=== PATIENT | female | born 1995 | race Caucasian/White ===

== ENCOUNTER 2021-12-08 16:31 | Inpatient (IN) | payer MEDICAID, OTHER ==
[~2021-12-08] VITALS: Ht 149.9 cm; Wt 55.4 kg
[2021-12-08] VITALS (21 sets, daily range): BP systolic 115–170; BP diastolic 65–94
[2021-12-08] MEDS ORDERED: LACTATED RINGERS 1,000 ML IV SCH (16:45)
[2021-12-08] MEDS ORDERED: LIDOCAINE/EPI 2% 1:200,00 (XYLOCAINE) 10 ML VIAL ONE ×2 (16:55→16:56)
[2021-12-08 16:56] LABS: BASOPHILS # (AUTO) 0.1 10^3/uL (0.0-0.1); BASOPHILS % (AUTO) 0 % (0-10); EOSINOPHILS # (AUTO) 0.1 10^3/uL (0.0-0.3); EOSINOPHILS % (AUTO) 1 % (0-10); HEMATOCRIT 36 % (35-52); HEMOGLOBIN 11.3 g/dL (11.5-16.0); LYMPHOCYTES # (AUTO) 2.7 10^3/uL (1.0-4.0); LYMPHOCYTES % (AUTO) 15 % (12-44); MEAN CORPUSCULAR HEMOGLOBIN 24 pg (25-34); MEAN CORPUSCULAR HGB CONC 31 g/dL (32-36); MEAN CORPUSCULAR VOLUME 77 fL (80-99); MEAN PLATELET VOLUME 8.8 fL (9.0-12.2); MONOCYTES # (AUTO) 1.8 10^3/uL (0.0-1.0); MONOCYTES % (AUTO) 10 % (0-12); NEUTROPHILS # (AUTO) 12.7 10^3/uL (1.8-7.8); NEUTROPHILS % (AUTO) 71 % (42-75); PLATELET COUNT 384 10^3/uL (130-400); WHITE BLOOD COUNT 17.8 10^3/uL (4.3-11.0)
--- NOTE | 2021-12-08 17:29 | History & Physical ---
History and Physical Date Seen by Provider: Dec 08, 2021 Time Seen by Provider: 16:20 This patient is a 26-year-old 3 para 2 female with no local physician. She had planned to deliver In [employer] However she began contractingAt home and this hospital is 45 minutes closer than [place]. She has a history of labor and deliveries she currently is at about 35 weeks gestation. She also has a history of very rapid deliveries. She had been in the hospital the past week for 3 days due to labor and had been dilated to 2 cm progressed to 6 or 7 cm was given magnesium to arrest labor and was given steroids on Thursday and Thursday of last week. By Thursday she was thought to be only 2 cm again so she was discharged home. Patient was 6 to 7 cm dilated on arrival reina every 2 minutes feeling a strong urge to push had a bulging bag and a vertex presentation. It was apparent that delivery was eminent. Patient does report no problems with this and a negative GBS culture during this Allergies are none Medications are vitamins Medical history is are negative Social history is patient and accompanied on this visit by her husbandShe denies tobacco alcohol and drug use Family history is noncontributory HEENT exam is normal Neck is supple no lymphadenopathy no thyromegaly Abdomen is gravid soft nontender nondistended Extremities show no clubbing or cyanosis. There is no Homans' sign. Initial exam as noted above repeat exam about 15 minutes later showed a cervix now 9 to 10 cm dilated, +1 to +2 station vertex presentation with a bulging bag. Amniotomy was performed with release of particulate meconium stained amniotic fluid. Patient pushed with several contractions and delivered see the delivery note. monitor showed a normal category 1 heart rate pattern with contractions every 2 minutes until the patient was pushing and then there were deep variable D cells. Assessment and plan 35-week with history of labor and delivery with 2 previous pregnancies. And advanced labor with delivery eminent on arrival 35 weeks gestation with labor Allergies and Home Medications Allergies Coded Allergies: No Known Drug Allergies (Unverified , 12/08/21) Patient Home Medication List Home Medication List Reviewed: Yes JAIMEE DEWEY MD Dec 08, 2021 17:29
--- NOTE | 2021-12-08 17:34 | OB Labor & Delivery Record ---
Labor & Delivery This patient delivered by spontaneous vaginal livery a viable male with Apgars of 8 and 9 at 1 and 5 minutes respectively weight of 5 pounds 15 ouncesAnd a cord blood pH that is pending. time was 1703. There was thick particulate amniotic fluid on amniotomy. RT was on hand and filler feeder was in route The was bulb suctioned on delivery the head and again on completion of delivery. The umbilical cord went pulses was doubly clamped the father cut the cord the baby was passed to mom's abdomen transiently. Baby was then taken to the the bedside warmer for resuscitation and tension. Placenta delivered spontaneously [place]. There has been port wine amniotic fluid concerning for some degree of placental abruption. There appeared to be a small adherent clot less than 5% of the edge of the placenta.Note was made of p artial uterine inversion promptly after placenta was delivered.Uterine fundus was replaced manuallyAnd then Pitocin was initiated to help with contraction of the uterus. Attention was paid particular to the uterus for recurrence of the inversion which did not occur The cervix vagina rectum perineum were examined and found intact except for some very superficial abrasions. Pudendal have been placed just after amniotomy and just prior to delivery due to patient's request for analgesia and no time for an epidural or spinal.Patient reported adequate relief with the pudendal. Sponge needle counts were correct on completion of the Delivery. Blood loss was estimated around 150 to 200 cc. The patient remained in the LDR for baby A was at the bedside warmer awaiting the arrival of the filler feeder. The baby was stable and oxygenating well. JAIMEE DEWEY MD Dec 08, 2021 17:34
[2021-12-08] MEDS ORDERED: IBUP-1780 PO (17:41)
[2021-12-08] MEDS ORDERED: DOCU-143 PO (17:41)
--- NOTE | 2021-12-08 17:42 | Discharge Inst-Surgical ---
Discharge Inst-Surgical Consults/Follow Up Orders & Referrals Follow Up Appt: Call to make follow up appt. for patient in 4 weeks. Activity Per routine post vaginal delivery instructions. Please call in RX to patient pharmacy. Diet as tolerated Patient may shower or tub bathe as desired. JAIMEE DEWEY MD Dec 08, 2021 17:42
--- NOTE | 2021-12-08 17:42 | Discharge Inst-Surgical ---
Discharge Inst-Surgical Depart Medication/Instructions New, Converted or Re-Newed RX: Call to Patients Pharmacy Consults/Follow Up Patient Instructions: As directed Activity Activity as Tolerated: No Diet Discharge Diet: No Restrictions JAIMEE DEWEY MD Dec 08, 2021 17:42
[2021-12-08] MEDS ORDERED: OXYTOCIN PRE-MIX DRIP 500 ML IV SCH (17:45)
[2021-12-08] MEDS ORDERED: BENZOCAINE/MENTHOL (DERMOPLAST) 56 ML CAN TP PRN (17:45)
[2021-12-08] MEDS ORDERED: TETANUS,DIPTH,PERTUSS P/F (BOOSTRIX) 0.5 ML VIAL IM ONE (17:45)
[2021-12-08 17:57] LABS: LYMPHOCYTES % (MANUAL) 16 %; MICROCYTOSIS SLIGHT; MONOCYTES % (MANUAL) 7 %; NEUTROPHILS % (MANUAL) 77 %; POLYCHROMASIA SLIGHT; RBC MORPH NORMAL
[2021-12-08] MEDS ORDERED: BENZOCAINE/MENTHOL (DERMOPLAST) 56 ML CAN TP ONE (19:40)
[2021-12-08] MEDS ORDERED: KETOROLAC 30 MG/ML VIAL ONE (20:11)
[2021-12-08] MEDS: KETOROLAC 30 MG/ML VIAL IV SCH (20:14)
[2021-12-08] MEDS: ACETAMINOPHEN 500 MG TAB (TYLENOL) PO SCH (20:41)
[2021-12-09 01:11] VITALS: BP 128/80
[2021-12-09] MEDS: KETOROLAC 30 MG/ML VIAL IV SCH ×3 (02:45→15:40)
[2021-12-09] MEDS: ACETAMINOPHEN 500 MG TAB (TYLENOL) PO SCH ×4 (02:45→21:30)
[2021-12-09 05:15] VITALS: BP 124/85
--- NOTE | 2021-12-09 07:50 | Progress Note ---
Standard Progress Note Progress Notes/Assess & Plan Date Seen by a Provider: Dec 09, 2021 Time Seen by a Provider: 07:49 Progress/Assessment & Plan This patient is without complaint. She is ambulating, voiding, tolerating oral intake well and has good pain control. Vital Signs Date Time Temp Pulse Resp B/P (MAP) Pulse Ox O2 Delivery O2 Flow Rate FiO2 12/09/21 05:15 36.6 70 16 124/85 (98) 97 Room Air 12/09/21 01:11 36.5 73 18 128/80 (96) 98 Room Air 12/08/21 21:00 36.8 82 130/86 (101) Room Air 12/08/21 20:45 96 134/85 (101) Room Air 12/08/21 20:30 97 120/79 (93) Room Air 12/08/21 20:15 89 141/90 (107) Room Air 12/08/21 20:00 98 130/91 (104) Room Air 12/08/21 19:45 95 121/84 (96) Room Air 12/08/21 19:30 36.7 100 132/88 (103) Room Air 12/08/21 19:15 100 137/92 (107) Room Air 12/08/21 19:00 100 135/89 (104) Room Air 12/08/21 18:45 90 132/85 (101) Room Air 12/08/21 18:30 36.3 95 20 126/80 (95) Room Air 12/08/21 18:15 36.2 94 20 128/83 (98) Room Air 12/08/21 18:00 36.3 90 20 126/79 (95) Room Air 12/08/21 17:44 36.4 98 20 123/71 (88) Room Air 12/08/21 17:39 36.3 125 20 152/85 (107) Room Air 12/08/21 17:34 36.5 102 20 135/65 (88) Room Air 12/08/21 17:26 36.3 100 20 115/80 (92) Room Air 12/08/21 17:10 36.1 110 20 170/89 (116) Room Air 12/08/21 17:06 36.0 93 20 151/70 (97) 98 Room Air 12/08/21 17:00 35.9 93 22 137/94 (108) 98 Room Air 12/08/21 16:50 36.4 99 20 99 Room Air I & O 12/09/21 07:00 Intake Total 575 ml Balance 575 ml Vital signs are stable. Patient is afebrile. Fundus is firm below the umbilicus and nontender. Extremities show no clubbing or cyanosis. There is no Homans' sign. Pelvic exam is deferred Assessment and plan day #1 status post spontaneous vaginal delivery at 35+ weeks gestation. Patient is doing well will have routine convalescent care JAIMEE DEWEY MD Dec 09, 2021 07:50
[2021-12-09] MEDS ORDERED: WITCH HAZEL(TUCKS) 40 EA JAR TOP PRN (08:00)
[2021-12-09] MEDS: DOCUSATE SODIUM 100 MG (COLACE) CAP PO SCH ×2 (08:15→21:30)
[2021-12-09 08:25] VITALS: BP 119/84
[2021-12-09 12:30] VITALS: BP 129/86
[2021-12-09 15:40] VITALS: BP 135/83
[2021-12-09] MEDS: IBUPROFEN 800 MG (MOTRIN) TAB PO SCH ×2 (15:40→21:30)
[2021-12-09] MEDS ORDERED: IBUPROFEN 800 MG (MOTRIN) TAB PO SCH (18:00)
[2021-12-09 21:30] VITALS: BP 125/72
[2021-12-10 04:30] VITALS: BP 118/73
[2021-12-10] MEDS: IBUPROFEN 800 MG (MOTRIN) TAB PO SCH ×3 (04:30→15:00)
[2021-12-10] MEDS: ACETAMINOPHEN 500 MG TAB (TYLENOL) PO SCH ×3 (04:30→15:00)
--- NOTE | 2021-12-10 07:32 | Progress Note ---
Standard Progress Note Progress Notes/Assess & Plan Date Seen by a Provider: Dec 10, 2021 Time Seen by a Provider: 07:31 Progress/Assessment & Plan This patient is without complaint. She is ambulating, voiding, tolerating oral intake well and has good pain control. Vital Signs Date Time Temp Pulse Resp B/P (MAP) Pulse Ox O2 Delivery O2 Flow Rate FiO2 12/09/21 05:15 36.6 70 16 124/85 (98) 97 Room Air 12/09/21 01:11 36.5 73 18 128/80 (96) 98 Room Air 12/08/21 21:00 36.8 82 130/86 (101) Room Air 12/08/21 20:45 96 134/85 (101) Room Air 12/08/21 20:30 97 120/79 (93) Room Air 12/08/21 20:15 89 141/90 (107) Room Air 12/08/21 20:00 98 130/91 (104) Room Air 12/08/21 19:45 95 121/84 (96) Room Air 12/08/21 19:30 36.7 100 132/88 (103) Room Air 12/08/21 19:15 100 137/92 (107) Room Air 12/08/21 19:00 100 135/89 (104) Room Air 12/08/21 18:45 90 132/85 (101) Room Air 12/08/21 18:30 36.3 95 20 126/80 (95) Room Air 12/08/21 18:15 36.2 94 20 128/83 (98) Room Air 12/08/21 18:00 36.3 90 20 126/79 (95) Room Air 12/08/21 17:44 36.4 98 20 123/71 (88) Room Air 12/08/21 17:39 36.3 125 20 152/85 (107) Room Air 12/08/21 17:34 36.5 102 20 135/65 (88) Room Air 12/08/21 17:26 36.3 100 20 115/80 (92) Room Air 12/08/21 17:10 36.1 110 20 170/89 (116) Room Air 12/08/21 17:06 36.0 93 20 151/70 (97) 98 Room Air 12/08/21 17:00 35.9 93 22 137/94 (108) 98 Room Air 12/08/21 16:50 36.4 99 20 99 Room Air I & O 12/09/21 07:00 Intake Total 575 ml Balance 575 ml Vital signs are stable. Patient is afebrile. Fundus is firm below the umbilicus and nontender. Extremities show no clubbing or cyanosis. There is no Homans' sign. Pelvic exam is deferred Assessment and plan day #1 status post spontaneous vaginal delivery at 35+ weeks gestation. Patient is doing well will have routine convalescent care December 10, 2021 Patient is without complaint. She is ambulating, voiding, tolerating oral intake well and has good pain control. Fundus is firm below the umbilicus and nontender. Extremities show no clubbing cyanosis. There is no Homans' sign. Assessment and plan day #2 doing well. Plan is for routine convalescent care Final Diagnosis 35-week spontaneous vaginal JAIMEE DEWEY MD Dec 10, 2021 07:32
[2021-12-10 08:03] VITALS: BP 122/76
[2021-12-10 12:00] VITALS: BP 123/81
== END 2021-12-10 17:26 | disposition home or self-care (01) | DRG 807 ==
LOC: LDRP 16:31 → WSo 16:31 → LDRP 16:33
PROVIDERS: ADMIT Obstetrics & Gynecology; ATTEND Obstetrics & Gynecology
PROC: 10E0XZZ Delivery of Products of Conception, External Approach (ICD-10-PCS; principal; 2021-12-08)
DX: O60.14X0 Preterm labor third trimester with preterm delivery third trimester, not applicable or unspecified (principal); Z37.0 Single live birth; Z3A.35 35 weeks gestation of pregnancy
CPT/HCPCS: 36415; 85007; 85027; 86850; 86900; 86901; 99212